=== PATIENT | female | born 1960 | race Caucasian/White ===

== ENCOUNTER → 2017-05-16 14:05 | Outpatient (CLI) | payer BC, SELFPAY ==
--- NOTE | 2017-05-16 | CT_ITS ---
EXAM: CT LUNG LOW DOSE WO CONTRAST COMPARISON: None HISTORY: 57-year-old male asymptomatic with greater than 30 pack-year smoking history ORDERING PHYSICIAN: Alexander Clay PATIENT AGE: 57 years TECHNIQUE: The exam was performed on a GE Light Speed [address] scanner using 2.96 mGy CTDI. A low dose helical CT CHEST was performed on a multi-detector scanner The LDCT was performed in a facility that meets the criteria for the screening program. Data regarding this exam was submitted to ACR which is an approved registry. The order for this exam indicates that it came as a result of a lung cancer screening counseling shard decision-making visit that included all the elements required of such a visit including smoking cessation. The radiologist interpreting this exam meets the [facility] criteria for the LDCT lung cancer screening program. The exam is reported using the Lung-RADS classification scale and reported to the ACR registry. NOTE: This study was performed for the specific purposes of lung cancer screening and is not an alternative to diagnostic chest CT. RADIATION DOSE: CTDI vol(CT dose Index-volume) = 2.96mG DLP (Dose Length Product) = 119.69 mGcm FINDINGS: Indeterminate or Suspicious Lung Nodules(Category3-4B): None Indeterminate/Non-actionable Nodules(Category2): None Benign nodules(Category1)small calcified granuloma left lower lobe LUNG PARENCHYMA Mild obstructive chronic bronchitis OTHER ANATOMIC REGIONS Lymph Nodes: No enlarged lymph nodes evident. Scattered small nodes are present in the mediastinum and daphne Pleura: Unremarkable Cardiac: Unremarkable OTHER FINDINGS: No other pertinent findings evident IMPRESSION: 1. Lung RADS Category: 2, benign 2. Other findings: No other pertinent findings evident RECOMMENDATIONS: 12 month LDCT screening exam
== END ==
PROVIDERS: PCP Physician Assistant; Visit Provider Internal Medicine
DX: Z87.891 Personal history of nicotine dependence (principal); Z12.2 Encounter for screening for malignant neoplasm of respiratory organs

== ENCOUNTER → 2017-06-14 16:59 | Outpatient (CLI) | payer BC, SELFPAY ==
[2017-06-14 17:28] LABS: Basophils # 0.1 K/mm3 (0-0.2); Basophils % 0.8 % (0.1-2.0); Eosinophils # 0.3 K/mm3 (0.0-0.4); Eosinophils % 3.1 % (0.1-12.0); Hematocrit 38.9 % (37.0-47.0); Hemoglobin 12.3 g/dL (12.2-16.2); Lymphocytes # 2.8 K/mm3 (0.7-4.5); Mean Corpuscular HGB Conc 31.6 g/dL (31.8-35.4); Mean Corpuscular Volume 91.9 fl (81-99); Mean Platelet Volume 8.6 fl (7.4-10.4); Monocytes # 0.6 K/mm3 (0.1-1.0); Monocytes % 7.4 % (1.7-9.3); Neutrophils # 4.3 K/mm3 (1.8-7.8); Neutrophils % 53.7 % (37.0-80.0); Platelet Count 279 K/mm3 (142-424); Red Blood Count 4.23 M/mm3 (4.20-5.40); Red Cell Distribution Width 12.4 % (11.5-17.5)
[2017-06-14 17:35] LABS: Anion Gap 10.1 mEq/L (5-15); Blood Urea Nitrogen 13 mg/dL (7-18); Carbon Dioxide 32 mmol/L (21.0-32.0); Chloride 103 mmol/L (98-107); Creatinine,Serum 0.84 mg/dL (0.55-1.02); Estimated Glomerular Filt Rate 70 ml/min (>60); GFR (African American) 85 ML/MIN (>60); Glucose 100 mg/dL (74-106); Potassium 4.1 mmoL/L (3.5-5.1); Sodium 141 mmol/L (136-145)
== END ==
PROVIDERS: PCP Internal Medicine; Visit Provider Otolaryngology
DX: H66.91 Otitis media, unspecified, right ear (principal); Z01.818 Encounter for other preprocedural examination
CPT/HCPCS: 36415; 80048; 85025

== ENCOUNTER → 2017-06-19 09:46 | Outpatient (CLI) | payer BC, SELFPAY ==
--- NOTE | 2017-06-19 09:48 | CA_ITS ---
PROCEDURE: 2-D M-mode and color Doppler study INDICATIONS FOR THE TEST: Chest pain COPD Heart Murmur Tobacco SmokingEX Palpitations Fatigue Syncope Edema HypertensionXDiabetes Mellitus Rheumatic Fever SOB LYONS Obesity HyperlipidemiaX Family History HD Additional History BRADYCARDIA/ABN EKG PATIENT INFORMATION HEIGHT: 67 WEIGHT:162 GENDER: Female B/P:134/80 2-D/M-MODE INTERPRETATION: 2-D MEASUREMENTS OBSERVED VALUES IN CMS Right Ventricular Dimension (RVDd) 2.5 Interventricular Septum (Thickness)(IVsd) .8 Left Ventricular Internal Dimensions(LVIDd) 4.8 Left Ventricular Posterior Wall (Thickness)(LVPWd) .8 Aortic Root 3.1 Aortic Cusp Separation 1.9 Left Atrial Dimensions (LAD) 2.9 2D 1. Left atrium is mildly enlarged, left ventricle is normal size, there is no concentric left ventricular hypertrophy, visually estimated ejection fraction 55% with no obvious regional wall motion abnormality. 2. The right atrium and right ventricle are normal size and contractility. 3. The aortic, mitral and tricuspid valve leaflets are minimally thickened. 4. The pulmonic valve is poorly visualized. 6. No significant pericardial effusion noted. DOPPLER INTERROGATION: Doppler interrogation of the aortic, mitral and tricuspid valvular presence of moderate mitral and mild tricuspid regurgitation, tricuspid regurgitant jet velocity insufficient for calculation of the right ventricular systolic pressure, diastolic parameters are inconclusive. CONCLUSION: 1. Mildly enlarged left atrium, normal left ventricular size, visually estimated ejection fraction 55% with no obvious regional wall motion abnormality, diastolic parameters are inconclusive. 2. Moderate mitral and mild tricuspid regurgitation 3. No significant pericardial effusion noted.
== END ==
PROVIDERS: PCP Internal Medicine; Visit Provider Physician Assistant
DX: R00.1 Bradycardia, unspecified (principal); Z01.818 Encounter for other preprocedural examination; R94.31 Abnormal electrocardiogram [ECG] [EKG]; E78.5 Hyperlipidemia, unspecified
CPT/HCPCS: 93306

== ENCOUNTER → 2017-06-26 06:51 | Outpatient (CLI) | payer BC, SELFPAY ==
--- NOTE | 2017-06-26 06:53 | NM_ITS ---
History and Indications: Hypertension, hyperlipidemia, shortness of breath, fatigue and abnormal EKG. Procedure: Patient exercised on Rodrigue protocol 7 minutes and 45 seconds, resting heart rate was 63 beats per resting blood pressure 153/84, with exercise maximum heart rate achieved was 173 bpm which is equal to 105% of the maximum predicted heart rate, and the blood pressure was 205/90. Test was started due to shortness of breath and fatigue patient denied any complained of chest pain. Patient has adequate exercise capacity achieved 9 metastases of workload on treadmill, the blood pressure response to exercise was adequate. Electrocardiogram: Resting electrocardiogram showed sinus rhythm, with exercise there is less than 1.[address] segment depression noted from the baseline EKG. The EKG portion of the exercise Myoview is negative for ischemia. Cardiac stress and resting SPECT images: Cardiac stress and rest SPECT images were obtained using technetium 99 Myoview 10.6 mCi at rest and 30.8 mCi at stress, gated SPECT further analysis of segmental wall motion and calculation of the ejection fraction also done. Cardiac stress and rest SPECT images show uniform myocardial activity without any segmental perfusion abnormality, computer derived ejection fraction is over 65% with no obvious regional wall motion abnormality, right ventricle is normal size and contractility. Conclusion: 1. The EKG portion of the exercise Myoview is negative for ischemia. Patient has adequate exercise capacity achieved 9 mets of workload on treadmill, the blood pressure response to exercise was adequate, there was no exercise-induced chest discomfort. 2. No obvious scintigraphic evidence of reversible ischemia seen, computer derived ejection fraction is over 65% with no obvious regional wall motion abnormality, right ventricle is normal size and contractility. 3. Normal exercise myocardial perfusion imaging
--- NOTE | 2017-06-26 07:43 | HMH.ITSHM ---
HYDROCHLOROT ATORVASTATIN
== END ==
PROVIDERS: PCP Internal Medicine; Visit Provider Internal Medicine
DX: R00.1 Bradycardia, unspecified (principal); Z01.818 Encounter for other preprocedural examination; E78.5 Hyperlipidemia, unspecified; R94.31 Abnormal electrocardiogram [ECG] [EKG]
CPT/HCPCS: 78452; 93017; A9502

== ENCOUNTER → 2017-09-19 09:51 | Outpatient (REF) | payer BC, SELFPAY ==
[2017-09-19 13:37] LABS: Basophils # 0.1 K/mm3 (0-0.2); Basophils % 0.8 % (0.1-2.0); Eosinophils # 0.2 K/mm3 (0.0-0.4); Hematocrit 39.3 % (37.0-47.0); Hemoglobin 12.2 g/dL (12.2-16.2); Lymphocytes # 1.9 K/mm3 (0.7-4.5); Lymphocytes % 26.8 K/mm3 (10-50); Mean Corpuscular HGB Conc 31.1 g/dL (31.8-35.4); Mean Corpuscular Hemoglobin 29.1 pg (27.0-31.2); Mean Corpuscular Volume 93.6 fl (81-99); Mean Platelet Volume 8.6 fl (7.4-10.4); Monocytes # 0.5 K/mm3 (0.1-1.0); Monocytes % 7.2 % (1.7-9.3); Neutrophils # 4.5 K/mm3 (1.8-7.8); Neutrophils % 62.1 % (37.0-80.0); Platelet Count 279 K/mm3 (142-424); Red Cell Distribution Width 12.7 % (11.5-17.5); White Blood Count 7.2 K/mm3 (4.8-10.8)
[2017-09-19 14:14] LABS: Alanine Aminotransferase 25 U/L (12-78); Albumin/Globulin Ratio 1.3 (1.1-1.8); Alkaline Phosphatase 66 U/L (46-116); Aspartate Amino Transferase 17 U/L (15-37); Bilirubin,Total 0.8 mg/dL (0.2-1.0); Blood Urea Nitrogen 13 mg/dL (7-18); Calcium 8.8 mg/dL (8.5-10.1); Carbon Dioxide 30 mmol/L (21.0-32.0); Chloride 105 mmol/L (98-107); Chol/HDL Ratio 1.9 (1-3.5); Cholesterol 176 mg/dL (140-200); Creatinine,Serum 0.74 mg/dL (0.55-1.02); Estimated Glomerular Filt Rate 81 ml/min (>60); Free T4 (Free Thyroxine) 0.98 ng/dl (0.76-1.46); GFR (African American) 99 ML/MIN (>60); Globulin 3.2 gm/dl (1.3-3.2); Glucose 96 mg/dL (74-106); HDL Cholesterol 94 mg/dL (29-89); LDL Cholesterol 75 mg/dL (0-130); Sodium 142 mmol/L (136-145); Thyroid Stimulating Hormone 1.83 uIU/ml (0.358-3.740); Total Protein,Serum 7.2 gm/dL (6.4-8.2); Triglycerides 33 mg/dL (30-200); VLDL Cholesterol 7 mg/dL (0-40)
[2017-09-20 13:59] LABS: Vitamin D 25 Hydroxy 48.6 ng/mL (30.0-100.0)
== END ==
LOC: LAB 09:51
PROVIDERS: Visit Provider Emergency Medicine
DX: R06.00 Dyspnea, unspecified (principal); E78.00 Pure hypercholesterolemia, unspecified; Z79.899 Other long term (current) drug therapy
CPT/HCPCS: 80053; 80061; 82652; 84439; 84443; 85025

== ENCOUNTER → 2017-11-13 13:22 | Outpatient (REF) | payer BC, SELFPAY | LOC: LAB 13:22 | PROVIDERS: Visit Provider Emergency Medicine | DX: R35.0 Frequency of micturition (principal) | CPT/HCPCS: 87086; 87088; 87186 ==

== ENCOUNTER → 2018-01-22 14:12 | Outpatient (CLI) | payer BC, SELFPAY ==
--- NOTE | 2018-01-22 14:14 | MM_ITS ---
MM Dig screening mamm BI w/CAD CAD Screening COMPARISON: Digital mammograms with CAD 08/16/2016 and 08/10/2015 INDICATION: There is no personal or family history of breast cancer TECHNIQUE: Standard CC and MLO images were obtained. R2 CAD reviewed. FINDINGS: Diffuse heterogenic fibroglandular densities are seen throughout both breasts. There are few benign-appearing calcination is left breast. There is no suspicious lesion and no suspicious microcalcifications. IMPRESSION: Moderate breast density with no suspicious lesion seen BI-RADS Category: 2 Benign Finding(s) RECOMMENDED FOLLOW-UP: 1YR - 1 YEAR FOLLOW-UP (A letter has been sent to the patient regarding results of the study.)
== END ==
PROVIDERS: PCP Emergency Medicine; Visit Provider Nurse Practitioner Obstetrics & Gynecology
DX: Z12.31 Encounter for screening mammogram for malignant neoplasm of breast (principal)
CPT/HCPCS: 77067

== ENCOUNTER → 2018-07-23 18:03 | Outpatient (CLI) | payer BC, SELFPAY ==
--- NOTE | 2018-07-23 18:13 | XR_ITS ---
XR knee LT 2V HISTORY: Pain ITS.REASON: left knee ORDERING PHYSICIAN: Gregorio Reddy MD PATIENT AGE: 58 years COMPARISON: None FINDINGS: No fracture or dislocation. No lytic or blastic change. Normal mineralization. No significant arthritic changes evident. No other significant findings IMPRESSION: Negative Knee
== END ==
PROVIDERS: PCP Emergency Medicine; Visit Provider Emergency Medicine
DX: M25.562 Pain in left knee (principal)
CPT/HCPCS: 73560

== ENCOUNTER → 2018-10-07 08:00 | Outpatient (CLI) | payer BC, SELFPAY ==
--- NOTE | 2018-10-07 08:03 | CA_ITS ---
PROCEDURE: 2-D M-mode and color Doppler study INDICATIONS FOR THE TEST: Chest pain COPD Heart Murmur Tobacco Smoking Palpitations Fatigue Syncope Edema HypertensionXDiabetes Mellitus Rheumatic Fever SOB LYONS Obesity HyperlipidemiaX Family History HDX Additional History MR PATIENT INFORMATION HEIGHT: 67 WEIGHT:162 GENDER: Female B/P:119/75 2-D/M-MODE INTERPRETATION: 2-D MEASUREMENTS OBSERVED VALUES IN CMS Right Ventricular Dimension (RVDd) 2.5 Interventricular Septum (Thickness)(IVsd) .7 Left Ventricular Internal Dimensions(LVIDd) 4.9 Left Ventricular Posterior Wall (Thickness)(LVPWd) .8 Aortic Root 2.7 Aortic Cusp Separation 1.8 Left Atrial Dimensions (LAD) 2.5 2D 1. Left atrium is qualitatively mildly enlarged, left ventricle is normal size, mild concentric left ventricular hypertrophy, visually estimated ejection fraction 55% with no regional wall motion abnormality. 2. The right atrium and right ventricle are normal size and contractility. 3. The aortic valve is minimally thickened and fibrosed. 4. The mitral and tricuspid valve leaflets are minimally thickened. 5. The pulmonic valve is poorly visualized. 6. No significant pericardial effusion noted. DOPPLER INTERROGATION: Doppler interrogation of the aortic, mitral and tricuspid valvular presence of moderate mitral and mild tricuspid regurgitation, calculated right ventricular systolic pressure is 35 mmHg, diastolic parameters are inconclusive. Inferior vena cava is mildly dilated without significant respiratory collapse. CONCLUSION: 1. Mildly enlarged left atrium, left ventricle size, mild concentric left ventricular hypertrophy, visually estimated ejection fraction 55% with no regional wall motion abnormality, diastolic parameters are inconclusive. 2. Moderate mitral and mild tricuspid regurgitation, calculated right ventricular systolic pressure 35 mmHg. Inferior vena cava is not well visualized. 3. No significant pericardial effusion noted.
== END ==
PROVIDERS: PCP Emergency Medicine; Visit Provider Physician Assistant
DX: I34.0 Nonrheumatic mitral (valve) insufficiency (principal); I07.1 Rheumatic tricuspid insufficiency
CPT/HCPCS: 93306

== ENCOUNTER → 2018-11-22 17:38 | Outpatient (CLI) | payer BC, SELFPAY | PROVIDERS: Visit Provider Emergency Medicine | DX: N39.0 Urinary tract infection, site not specified (principal) | CPT/HCPCS: 87086; 87088; 87186 ==

== ENCOUNTER → 2019-01-28 15:13 | Outpatient (CLI) | payer BC, SELFPAY ==
--- NOTE | 2019-01-28 15:21 | MM_ITS ---
PROCEDURE: MM DIG SCREENING MAMM BI W/CAD CLINICAL INDICATION: routine screening mammogram There is no personal or family history of breast cancer. There has been cyst aspiration left breast for benign disease. COMPARISON: [facility] DIG MAMM-SCREEN DOUG from 08/10/2015 [facility] DIG MAMM-SCREEN DOUG W/CAD from 08/16/2016 [facility] MM Dig screening mamm BI w/CAD from 01/22/2018 TECHNIQUE: Standard CC and MLO images were obtained. R2 CAD reviewed. FINDINGS: Moderate diffuse fibroglandular densities are seen in the central portions of both breasts. There are stable benign-appearing calcifications deep to the nipple of the left breast. There is no new or suspicious lesion and no suspicious microcalcifications. IMPRESSION: Moderate breast density with no suspicious lesions seen BI-RAD Category: 2 Benign Finding(s) FOLLOW-UP: 1YR 1 Year Follow-up (A letter has been sent to the patient regarding results of the study.) Dictated by: Dr. Chandu Chávez MD 01/30/2019 11:[address] Chandu Chávez MD in [place] 01/30/2019 11:21
== END ==
PROVIDERS: PCP Emergency Medicine; Visit Provider Nurse Practitioner Obstetrics & Gynecology
DX: Z12.31 Encounter for screening mammogram for malignant neoplasm of breast (principal)
CPT/HCPCS: 77067

== ENCOUNTER → 2019-03-11 07:34 | Outpatient (CLI) | payer BC, SELFPAY ==
--- NOTE | 2019-03-11 07:35 | MR_ITS ---
PROCEDURE: MR CERVICAL SPINE WO CON CLINICAL INDICATION: left arm numbness and pain, shoulder pain Left arm numbness and pain with pressure on left-sided chest, numbness down left with burning sensation and tingling COMPARISON: [facility] CERVICAL SPINE 4 OR 5 VIEWS from 01/15/2013 TECHNIQUE: Standard multiplanar multiecho sequences are performed without contrast. 3-D MIP and myelographic images are also rendered and reviewed FINDINGS: There is reversal of the cervical lordosis. This may be due to patient positioning or muscle spasm. Cranial cervical junction has an unremarkable appearance. C2-C3: Unremarkable. C3-C4: Unremarkable. C4-C5: Mild anterolisthesis of C4 over of 4 mm. C5-C6: Mild anterolisthesis for of C5 of approximately 4 mm. C6-C7: Degenerate disc disease with minimal bulging disc. There is facet and uncovertebral hypertrophy with right uncovertebral disc osteophyte complex causing moderate to severe narrowing of the right neural foramen and mild left foraminal narrowing. There narrowing of the canal at C6-C7 at 10 mm but no cord impingement. C7-T1: Unremarkable. There is a small right paracentral disc protrusion suspected at T2-T3 only imaged in the sagittal plane. No fracture or dislocation. IMPRESSION: 1. Reversal of lordosis which may be due to patient positioning or muscle spasm. 2. Anterolisthesis of C4 on C5 and C5 on C6 of 4 mm at each level. 3. Degenerative disc disease C6-C7 with minimal bulging disc. There is facet and uncovertebral hypertrophy with right uncovertebral disc osteophyte complex causing moderate to severe narrowing of the right neural foramen and mild left foraminal narrowing. There narrowing of the canal at C6-C7 at 10 mm but no cord impingement 4. Small right paracentral disc protrusion suspected at T2-T3 Dictated by: Issac Thomas MD 03/12/2019 12:39 Electronically signed by Issac Thomas MD in [place] 03/12/2019 12:39
== END ==
PROVIDERS: PCP Emergency Medicine; Visit Provider Emergency Medicine
DX: M54.12 Radiculopathy, cervical region (principal); M25.512 Pain in left shoulder; M79.602 Pain in left arm; R20.0 Anesthesia of skin
CPT/HCPCS: 72141; 76376

== ENCOUNTER → 2019-03-24 13:19 | Outpatient (POV) | payer BC, SELFPAY | PROVIDERS: Visit Provider Specialist | DX: M79.602 Pain in left arm (principal); R20.0 Anesthesia of skin; R20.2 Paresthesia of skin | CPT/HCPCS: 95886; 95909 ==

== ENCOUNTER → 2019-04-04 06:42 | Outpatient (CLI) | payer BC, SELFPAY ==
--- NOTE | 2019-04-04 | CA_ITS ---
APPROVED REPORT Exam: Exercise Treadmill Technologist: Bernarda Grimaldo Ht: 5 ft 7 in Wt: 170 lbs BSA: 1.89 m2 HR: 91 bpm BP: 155/96 mmHg Rhythm: NSR Medical History Medical History: HTN, Hyperlipidemia Medications: Gabapentin,,,,, Losartan,,,,, HCTZ,,,,, SyMBICORT,,,,, AtorvaASTATIN,,,,, CyclobenAPRINE,,,,, Omepazole,,,,, Cardiac Risk Factors: HTN, Hyperlipidemia, FHX of CAD Stress Test Details Test: Adam HR Resting HR: 99 bpm Max Heart Rate (APMHR): 163 bpm Max HR Achieved: 168 bpm Target HR (85% APMHR): 138 bpm % of APMHR: 103 Recovery HR: 129 bpm BP Resting BP: 147/88 mmHg Max BP: 216/117 mmHg BP response to stress: Normal blood pressure response to stress. ECG Resting ECG: NORMAL SINUS RHYTHM Clinical Reason for Termination: Dyspnea Exercise duration: 06:00 min Highest Stage Achieved: Exercise capacity: 7.0 METs Stress ECG Conclusion PATIENT WALKED 6 MINUTES ON ADAM PROTOCOL WITH MAX HEART RATE 168 BPM WHICH IS 120% OF PM FOR AGE. METS = 7.0. TEST STOPPED DUE TO SOA. OCCASIONAL PVC'S. ONE TRIPLET IN STRESS,ANOTHER IN REST. <1.[address] SEGMENT CHANGES. ABNORMAL STRESS(SOA,ARRHYTHMIAS) Test Summary RECOVERY 05:30 0.0 0.0 108 . 190/ 88 . . REST . . . . . . . Sitting REST . . . . . . . Sitting REST 13:29 0.0 1.2 99 . 147/ 88 . . Stage 1 01:00 10.0 1.7 111 . . . . Stage 1 02:00 10.0 1.7 126 . . . . Stage 1 03:00 10.0 1.7 137 . . . . Stage 2 01:00 12.0 2.5 146 . 146/ 84 . . Stage 2 02:00 12.0 2.5 159 . 146/ 84 . . Stage 2 . . . . . . . Cardiolite injected Stage 2 . . . . . . . Stage held Stage 2 . . . . . . . Stage resumed Stage 2 03:00 12.0 2.5 163 . 156/ 92 . Stop exercise at 06:00 RECOVERY 01:00 0.0 0.0 158 . . . . RECOVERY 02:00 0.0 0.0 140 . 216/117 . . RECOVERY 03:00 0.0 0.0 130 . 216/117 . . RECOVERY 04:00 0.0 0.0 117 . 216/117 . . RECOVERY 05:00 0.0 0.0 108 . 216/117 . . RECOVERY 05:30 0.0 0.0 108 . 190/ 88 . . Electronically signed by : Reza Vasquez, 04/04/2019 14:54:49
--- NOTE | 2019-04-04 06:49 | NM_ITS ---
APPROVED REPORT Exam: Nuclear Stress Test Indication: LT ARM PAIN, HTN, HYPERLIPIDEMIA, FM.HX., C.P., MELISSA MAYO Patient Location: Outpatient Stress Tech: Bernarda Cazaresnkson [place] Tech:Gabrielle Encarnacion, ARRT RT(R)(N) Ht: 5 ft 7 in Wt: 170 lbs Bra Size: 38D HR: 91 bpm BP: 155/96 mmHg BSA: 1.89 m2 BMI: 26.6 History: LT ARM PAIN, HTN, HYPERLIPIDEMIA, FM.HX., C.P., SOB, MELISSA Procedure: Patient exercised on Rodrigue protocol 6:00 minutes and sec, resting heart rate 91 bpm, resting blood pressure 155/96 mmHg, with exercise maximum heart rate achived was 164 bpm which is Greater than 85 % of the maximum predicted heart rate and blood pressure was 217/92 mmHg. Test was stopped due to Shortness of breath. Patient has Adequate exercise capacity, achieved 7 METs of workload on treadmill, the blood pressure response to exercise was Hypertensive. SOB Electrocardiogram Resting electrocardiogram showed sinus rhythm, with exercise there is less than 1.[address] segment depression noted from the baseline EKG. The EKG portion of the exercise Myoview is negative for ischemia. Cardiac Stress and Resting SPECT Images: Cardiac Stress and Resting SPECT images were obtained using technetium 99m Myoview 30.4 mCi stress and 10.80 mCi at rest. Gated SPECT with analysis of segmental wall motion and calculation of the ejection fraction also done. Cardiac stress and resting SPECT images show uniform myocardial activity without segmental perfusion abnormality, computer derived ejection fraction is over 65% with no regional wall motion abnormality, right ventricle is normal size and contractility. Conclusion: 1. The EKG portion of the exercise Myoview is negative for ischemia, patient has adequate exercise capacity achieved 7 mets of workload on treadmill, the blood pressure response to exercise was hypertensive, test was stopped due to shortness of breath. 2. No scintigraphic evidence of reversible ischemia seen at this level of exercise, computer derived ejection fraction is over 65% with no regional wall motion abnormality, right ventricle is normal size and contractility. 3. Normal exercise Myoview study except for hypertensive blood pressure response. Electronically signed by : Reza Vasquez, 04/04/2019 14:58:09
--- NOTE | 2019-04-04 09:41 | HMH.ITSHM ---
Current Home Medications as stated by this patient Melinda Anne or quality control representative. [] losartan atorvastain omeprazole cyclobenzaprine gabapentin symbicort
== END ==
PROVIDERS: PCP Emergency Medicine; Visit Provider Urology
DX: I34.0 Nonrheumatic mitral (valve) insufficiency (principal); R07.9 Chest pain, unspecified; E78.5 Hyperlipidemia, unspecified; I10 Essential (primary) hypertension
CPT/HCPCS: 78452; 93017; A9502

== ENCOUNTER → 2019-04-08 07:45 | Outpatient (CLI) | payer BC, SELFPAY ==
--- NOTE | 2019-04-08 07:45 | MR_ITS ---
PROCEDURE: MR BRACHIAL PLEXUS LT WO CON CLINICAL INDICATION: abn emg/ncv Left-sided shoulder blade pain, left shoulder and arm pain numbness and tingling, left-sided upper chest pain/strain COMPARISON: No exams were available for comparison TECHNIQUE: Routine multiplanar multi echo sequences are performed without gadolinium enhancement. FINDINGS: Spondylitic changes are present in the cervical spine and were described recently and a cervical spine MRI of 03/11/2019. Please see that report for the cervical spine findings. No abnormal signal intensity in the region of the brachial plexus on either side. No obvious mass or fluid collection. There is some prominence of the vascularity in the upper chest wall anteriorly. This is of questionable clinical significance and may only be due to anatomic variation. Enhanced CT of the chest to include the lower neck may confirm this finding to exclude the possibility of an AVM. No other significant anomalies are evident. IMPRESSION: Prominent vascularity in the upper chest/lower neck anteriorly on the left. This may only be due to variation of normal however, with the patient's symptoms would suggest confirmation with CT angiogram of the lower neck and upper chest with delayed imaging to exclude the possibility of an arteriovenous malformation aneurysm or varix. Cervical spondylosis. Please see cervical spine MRI for those findings. Dictated by: Issac Thomas MD 04/11/2019 06:17 Electronically signed by Issac Thomas MD in [place] 04/11/2019 06:17
== END ==
PROVIDERS: PCP Emergency Medicine; Visit Provider Emergency Medicine
DX: G54.0 Brachial plexus disorders (principal)
CPT/HCPCS: 73218

== ENCOUNTER → 2019-04-24 14:00 | Outpatient (CLI) | payer BC, SELFPAY ==
[2019-04-24 15:45] LABS: Anion Gap 9.9 mEq/L (5-15); Blood Urea Nitrogen 15 mg/dL (7-18); Calcium 8.8 mg/dL (8.5-10.1); Carbon Dioxide 33 mmol/L (21.0-32.0); Chloride 103 mmol/L (98-107); Creatinine,Serum 0.78 mg/dL (0.55-1.02); Estimated Glomerular Filt Rate 76 ml/min (>60); GFR (African American) 92 ML/MIN (>60); Glucose 93 mg/dL (74-106); Potassium 3.9 mmoL/L (3.5-5.1); Sodium 142 mmol/L (136-145)
== END ==
PROVIDERS: Visit Provider Emergency Medicine
DX: Z01.818 Encounter for other preprocedural examination (principal)
CPT/HCPCS: 36415; 80048

== ENCOUNTER → 2019-04-28 12:35 | Outpatient (CLI) | payer BC, SELFPAY ==
--- NOTE | 2019-04-28 12:35 | CT_ITS ---
Procedure: CT ANGIO NECK CLINICAL HISTORY: with delayed imaging; r/o AVM Left-sided scapular pain and numbness burning sensation. Left shoulder blade pain, left upper chest pain, abnormal MRI the brachial plexus with questionable arteriovenous malformation COMPARISON: MR BRACHIAL PLEXUS LT WO CON from 04/08/2019 TECHNIQUE: IV Contrast: 100ml Optiray 350 Axial images obtained with sagittal and coronal reformats. All CT scans at the facility use one or more dose reduction, viz: automated exposure control, ma/kV adjustment per patient size (including targeted exams where dose is matched to indication, i.e. head), or iterative reconstruction technique. FINDINGS: No evidence of aortic aneurysm. Contrast was injected into the antecubital vein in the left upper extremity which did cause prominence of the venous structures about the left shoulder girdle. This makes it difficult to exclude the possibility of early venous filling on the left which 1 would see with an AVM. The patient will be asked to come back and repeat the exam at no additional charge with injection into the right antecubital fossa and if negative would eliminate any concern for AVM on the left. No aneurysms are evident. No soft tissue mass or abnormal fluid collection. No acute bony anomalies. There is mild anterolisthesis of C4 on C5 of 4 mm and C5 on C6 of 3 mm with reversal of the cervical lordosis and degenerative disc disease at C6-C7. Facet and uncovertebral hypertrophy is present with left-sided foraminal narrowing at C3-C4 and C4-C5. The lung apices are clear. IMPRESSION: Prominent veins are present in the shoulder girdle on the left but may be related to the fact contrast was injected into the left antecubital vein. The patient will be asked to return at no additional charge with repeat imaging with contrast injected into the right antecubital vein. Cervical spondylosis Dictated by: Issac Thomas MD 04/30/2019 09:16 Electronically signed by Issac Thomas MD in [place] 04/30/2019 09:16
== END ==
PROVIDERS: PCP Emergency Medicine; Visit Provider Emergency Medicine
DX: Q27.30 Arteriovenous malformation, site unspecified (principal)
CPT/HCPCS: 70498; Q9967

== ENCOUNTER → 2019-04-28 13:45 | Outpatient (POV) | payer BC, SELFPAY ==
[2019-04-28 14:09] VITALS: BP 164/98; PULSE 96; RESP 18; O2SAT 99; BMI 26.6
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
== END ==
PROVIDERS: PCP Emergency Medicine; Visit Provider Clinical Nurse Specialist Family Health
DX: M47.22 Other spondylosis with radiculopathy, cervical region (principal); E11.9 Type 2 diabetes mellitus without complications; K21.9 Gastro-esophageal reflux disease without esophagitis; R01.1 Cardiac murmur, unspecified; E78.5 Hyperlipidemia, unspecified; I10 Essential (primary) hypertension; Z79.899 Other long term (current) drug therapy; Z88.0 Allergy status to penicillin
CPT/HCPCS: 99202

== ENCOUNTER → 2019-05-05 12:33 | Outpatient (CLI) | payer BC, SELFPAY ==
--- NOTE | 2019-05-05 12:36 | CT_ITS ---
PROCEDURE: REPEAT VIEW CT CLINICAL HISTORY: Left-sided scapular pain and numbness with burning sensation. Possible arteriovenous malformation. COMPARISON: CT ANGIO NECK from 04/28/2019 TECHNIQUE: Study is repeated with contrast injected into the right and a cubital vein in order to decrease the obvious venous filling on the left as that was the site questionable arteriovenous malformation Axial images obtained with sagittal and coronal reformats. All CT scans at the facility use one or more dose reduction, viz: automated exposure control, ma/kV adjustment per patient size (including targeted exams where dose is matched to indication, i.e. head), or iterative reconstruction technique. FINDINGS: The left neck and left axillary and scapular region have an unremarkable appearance. No evidence of arteriovenous malformation or aneurysm. The left lung apex is clear. There is mild anterolisthesis of C4 on C5 of 3 mm with mild degenerative disc disease of C4-C5-C5-C6 and moderate degenerative disc disease at C6-C7. There is moderate right-sided foraminal narrowing at C6-C7. IMPRESSION: 1. No evidence of left chest wall AVM. 2. Cervical spondylosis Dictated by: Issac Thomas MD 05/06/2019 08:23 Electronically signed by Issac Thomas MD in [facility] 05/06/2019 08:23
== END ==
PROVIDERS: PCP Emergency Medicine; Visit Provider Emergency Medicine
DX: Q27.30 Arteriovenous malformation, site unspecified (principal)

== ENCOUNTER → 2020-03-03 15:15 | Outpatient (CLI) | payer BC, SELFPAY ==
--- NOTE | 2020-03-03 15:15 | MM_ITS ---
PROCEDURE: MM DIG SCREENING MAMM BI W/CAD Digital Breast Tomosynthesis Included CLINICAL INDICATION: screening There is no personal or family history of breast cancer. There has been a previous cyst aspiration left breast with benign findings. COMPARISON: MG DMSB DIG MAMM-SCREEN DOUG W/CAD from 08/16/2016 MG [facility] MM Dig screening mamm BI w/CAD from 01/22/2018 MG MM DIG SCREENING MAMM BI W/CAD from 01/28/2019 TECHNIQUE: Standard CC and MLO images and 3D Tomosynthesis was obtained. R2 CAD reviewed. FINDINGS: Fibroglandular densities are seen throughout both breast and the findings are bilateral and symmetrical. There are a couple of benign-appearing calcifications in each breast. No new or suspicious lesion in either breast and no suspicious microcalcifications. IMPRESSION: Fibrofatty parenchyma with no suspicious lesions seen BI-RAD Category: 2 Benign Finding(s) FOLLOW-UP: 1YR 1 Year Follow-up (A letter has been sent to the patient regarding results of the study.) Dictated by: Dr. Chandu Chávez MD 03/05/2020 09:16 Dr. Chandu Chávez MD in [facility] 03/05/2020 09:16
== END ==
PROVIDERS: PCP Emergency Medicine; Visit Provider Emergency Medicine
DX: Z12.31 Encounter for screening mammogram for malignant neoplasm of breast (principal)
CPT/HCPCS: 77063; 77067

== ENCOUNTER → 2020-06-01 08:02 | Outpatient (POV) | payer BC, SELFPAY | PROVIDERS: Visit Provider Dermatology | DX: Z00.00 Encounter for general adult medical examination without abnormal findings (principal) ==

== ENCOUNTER → 2020-06-15 07:44 | Outpatient (CLI) | payer BC, SELFPAY ==
--- NOTE | 2020-06-15 07:51 | XR_ITS ---
PROCEDURE: XR FOOT WT BEARING RT 3V CLINICAL INDICATION: toe pain, redness COMPARISON: No exams were available for comparison FINDINGS: No fracture or dislocation. No lytic or blastic change. There is normal mineralization. The joint spaces are well-preserved. No significant degenerative/arthritic changes. No erosive changes evident. Other findings:Mild soft tissue swelling great toe IMPRESSION: Mild soft tissue swelling great toe otherwise negative Dictated by: Issac Thomas MD 06/15/2020 09:04 Issac Thomas MD in [facility] 06/15/2020 09:04
== END ==
PROVIDERS: PCP Emergency Medicine; Visit Provider Podiatrist
DX: M79.671 Pain in right foot (principal)
CPT/HCPCS: 73630; 87102; 87206; 87220

== ENCOUNTER → 2020-06-18 14:50 | Outpatient (CLI) | payer BC, SELFPAY ==
--- NOTE | 2020-06-18 15:13 | US_ITS ---
APPROVED REPORT Exam Type: Ankle to Brachial Index Stoner Hand: Sandy Patiño RT(R) Indications Rest Pain: Bilaterally Current Smoker Patient states Dr. Herndon had difficulty finding a right DP pulse. Risk Factors Hypertension Hyperlipidemia Pressures/Indices Right Indices Left Indices Brachial 133.00 mmHg Brachial 125.00 mmHg Low Thigh 126.00 mmHg 0.95 Low Thigh 135.00 mmHg 1.02 Calf 148.00 mmHg 1.11 Calf 131.00 mmHg 0.98 Ankle(PT) 161.00 mmHg 1.21 Ankle(PT) 170.00 mmHg 1.28 Ankle(DP) 146.00 mmHg 1.10 Ankle(DP) 151.00 mmHg 1.14 Digit 116.00 mmHg 0.87 Digit 109.00 mmHg 0.82 Findings RT ANA=1.2 LT ANA=1.28 RT TBI=0.87 LT TBI=0.82 Normal pulses Normal waveforms Conclusion RT ANA=1.2 LT ANA=1.28 RT TBI=0.87 LT TBI=0.82 Normal pulses Normal waveforms No evidence significant arterial disease throughout the right and left lower extremities as evidenced by normal resting PVR waveforms and normal resting indices. Electronically signed by : Issac Thomas MD 06/18/2020 16:17:26
== END ==
PROVIDERS: PCP Emergency Medicine; Visit Provider Podiatrist
DX: M79.605 Pain in left leg (principal); M79.604 Pain in right leg; R09.89 Other specified symptoms and signs involving the circulatory and respiratory systems
CPT/HCPCS: 93923

== ENCOUNTER → 2021-01-08 09:02 | Outpatient (CLI) | payer BC, SELFPAY ==
[2021-01-08 09:40] LABS: Basophils # 0.1 K/mm3 (0-0.2); Basophils % 0.7 % (0.1-2.0); Eosinophils # 0.2 K/mm3 (0.0-0.4); Eosinophils % 2.9 % (0.1-12.0); Hematocrit 37.9 % (37.0-47.0); Hemoglobin 12.5 g/dL (12.2-16.2); Lymphocytes % 30.7 % (10-50); Mean Corpuscular Hemoglobin 30.7 pg (27.0-31.2); Mean Platelet Volume 8.5 fl (7.4-10.4); Monocytes # 0.5 K/mm3 (0.1-1.0); Monocytes % 7.9 % (1.7-9.3); Neutrophils # 3.8 K/mm3 (1.8-7.8); Neutrophils % 57.7 % (37.0-80.0); Platelet Count 319 K/mm3 (142-424); Red Blood Count 4.07 M/mm3 (4.20-5.40); White Blood Count 6.6 K/mm3 (4.8-10.8)
[2021-01-08 10:08] LABS: Alanine Aminotransferase 14 U/L (12-78); Albumin Level 3.8 g/dl (3.5-5.0); Albumin/Globulin Ratio 1.3 (1.1-1.8); Alkaline Phosphatase 56 U/L (38-126); Anion Gap 7.5 mEq/L (5-15); Aspartate Amino Transferase 22 U/L (14-36); Bilirubin,Total 0.8 mg/dl (0.2-1.3); Blood Urea Nitrogen 11 mg/dl (7-17); Carbon Dioxide 30 mmol/L (22.0-30.0); Chloride 107 mmol/L (98-107); Chol/HDL Ratio 1.9 (1-3.5); Cholesterol 181 mg/dl (140-200); Estimated Glomerular Filt Rate 103 ml/min (>60); GFR (African American) 124 ML/MIN (>60); Globulin 2.9 g/dL (1.3-3.2); Glucose 96 mg/dl (74-100); HDL Cholesterol 94 mg/dl (40-60); Potassium 4.5 mmoL/L (3.5-5.1); Sodium 140 mmol/L (136-145); Total Protein,Serum 6.7 g/dl (6.3-8.2); Triglycerides 51 mg/dl (30-150); VLDL Cholesterol 10 mg/dL (0-40)
[2021-01-08 10:19] LABS: Direct LDL Cholesterol 76.09 mg/dL (100-129)
[2021-01-08 10:23] LABS: 25-OH Vitamin D, Total 45.1 ng/mL (30-100)
[2021-01-08 10:24] LABS: Free T4 (Free Thyroxine) 1.07 ng/dl (0.78-2.19)
[2021-01-08 10:41] LABS: Thyroid Stimulating Hormone 3.16 uIU/mL (0.465-4.68)
== END ==
PROVIDERS: Visit Provider Emergency Medicine
DX: E03.9 Hypothyroidism, unspecified (principal); R53.83 Other fatigue; K59.00 Constipation, unspecified
CPT/HCPCS: 80053; 80061; 82306; 84439; 84443; 85025

== ENCOUNTER → 2021-03-31 08:17 | Outpatient (CLI) | payer BC, SELFPAY ==
--- NOTE | 2021-03-31 08:17 | MM_ITS ---
PROCEDURE INFORMATION: Exam: MG Bilateral Screening 3D Mammography Exam date and time: 03/31/2021 8:17 AM Age: 61 years old Clinical indication: Encounter for screening mammogram for malignant neoplasm of breast TECHNIQUE: Imaging protocol: Bilateral screening tomosynthesis and 2D mammography including computer-aided detection (CAD) when performed. COMPARISON: 1. MG MM DIG SCREENING MAMM BI W/CAD 03/03/2020 3:33 PM 2. MG MM DIG SCREENING MAMM BI W/CAD 01/28/2019 3:38 PM FINDINGS: MAMMOGRAPHY: Breast composition: The breast tissue is heterogeneously dense, which may obscure small masses. Mass: None. Architectural distortion: None. Calcifications: No suspicious calcifications. Asymmetric density: None. Skin thickening: None. Axillary adenopathy: None. IMPRESSION: No mammographic evidence of malignancy. Annual screening is recommended unless otherwise clinically indicated. ASSESSMENT: BI-RADS Category 1: Negative
== END ==
PROVIDERS: PCP Emergency Medicine; Visit Provider Nurse Practitioner Obstetrics & Gynecology
DX: Z12.31 Encounter for screening mammogram for malignant neoplasm of breast (principal)
CPT/HCPCS: 77063; 77067

== ENCOUNTER → 2022-02-08 14:26 | Outpatient (CLI) | payer BC, SELFPAY ==
[2022-02-08 14:03] LABS: Influenza A, PCR Not Detected (NotDetected); Influenza B, PCR Not Detected (NotDetected)
[2022-02-08 21:31] LABS: Coronavirus 19, PCR Detected (NotDetected)
== END ==
PROVIDERS: PCP Emergency Medicine; Visit Provider Emergency Medicine
DX: U07.1 COVID-19 (principal); R09.89 Other specified symptoms and signs involving the circulatory and respiratory systems; R50.9 Fever, unspecified
CPT/HCPCS: C9803; U0003; U0005

== ENCOUNTER → 2022-04-08 08:11 | Outpatient (CLI) | payer BC, SELFPAY ==
[2022-04-08 08:46] LABS: Basophils # 0.2 K/mm3 (0-0.2); Eosinophils # 0.3 K/mm3 (0.0-0.4); Eosinophils % 3.8 % (0.1-12.0); Hematocrit 36.8 % (37.0-47.0); Hemoglobin 12.2 g/dL (12.2-16.2); Lymphocytes # 1.4 K/mm3 (0.7-4.5); Lymphocytes % 21.7 % (10-50); Mean Corpuscular HGB Conc 33.1 g/dL (31.8-35.4); Mean Corpuscular Hemoglobin 30.3 pg (27.0-31.2); Mean Corpuscular Volume 91.7 fl (81-99); Mean Platelet Volume 8.2 fl (7.4-10.4); Monocytes # 0.5 K/mm3 (0.1-1.0); Neutrophils # 4.1 K/mm3 (1.8-7.8); Neutrophils % 63.6 % (37.0-80.0); Platelet Count 339 K/mm3 (142-424); Red Blood Count 4.01 M/mm3 (4.20-5.40); Red Cell Distribution Width 13.2 % (11.5-17.5); White Blood Count 6.5 K/mm3 (4.8-10.8)
[2022-04-08 09:14] LABS: Alanine Aminotransferase 20 U/L (12-78); Albumin Level 4.1 g/dl (3.5-5.0); Albumin/Globulin Ratio 1.6 (1.1-1.8); Alkaline Phosphatase 56 U/L (38-126); Anion Gap 9.2 mEq/L (5-15); Aspartate Amino Transferase 26 U/L (14-36); Bilirubin,Total 0.8 mg/dl (0.2-1.3); Blood Urea Nitrogen 15 mg/dl (7-17); Calcium 8.6 mg/dl (8.4-10.2); Carbon Dioxide 30 mmol/L (22.0-30.0); Chloride 104 mmol/L (98-107); Cholesterol 176 mg/dl (140-200); Estimated Glomerular Filt Rate 73 ml/min (>60); GFR (African American) 89 ML/MIN (>60); Globulin 2.6 g/dL (1.3-3.2); Glucose 92 mg/dl (74-100); HDL Cholesterol 86 mg/dl (40-60); Potassium 4.2 mmoL/L (3.5-5.1); Sodium 139 mmol/L (136-145); Total Protein,Serum 6.7 g/dl (6.3-8.2); Triglycerides 44 mg/dl (30-150); VLDL Cholesterol 9 mg/dL (0-40)
[2022-04-08 09:33] LABS: 25-OH Vitamin D, Total 32.2 ng/mL (30-100); Free T4 (Free Thyroxine) 1.08 ng/dl (0.78-2.19)
[2022-04-08 09:42] LABS: Direct LDL Cholesterol 68.17 mg/dL (100-129)
[2022-04-08 09:48] LABS: Thyroid Stimulating Hormone 3.57 uIU/mL (0.465-4.68)
== END ==
PROVIDERS: PCP Emergency Medicine; Visit Provider Emergency Medicine
DX: R68.89 Other general symptoms and signs (principal); E55.9 Vitamin D deficiency, unspecified
CPT/HCPCS: 36415; 80053; 80061; 82306; 84439; 84443; 85025

== ENCOUNTER → 2022-04-18 13:10 | Outpatient (CLI) | payer BC, SELFPAY ==
--- NOTE | 2022-04-18 13:10 | MM_ITS ---
PROCEDURE INFORMATION: Exam: MG Bilateral Screening 3D Mammography Exam date and time: 04/18/2022 1:16 PM Age: 62 years old Clinical indication: Screening examination TECHNIQUE: Imaging protocol: Bilateral Screening tomosynthesis and 2D mammography including computer-aided detection (CAD) when performed. COMPARISON: 1. MG MM DIG SCREENING MAMM BI W/CAD 03/31/2021 8:22 AM 2. MG MM DIG SCREENING MAMM BI W/CAD 03/03/2020 3:33 PM FINDINGS: MAMMOGRAPHY: Breast composition: There are scattered areas of fibroglandular density. Mass: None. Architectural distortion: None. Calcifications: No suspicious calcifications. Asymmetric density: None. Skin thickening: None. Axillary adenopathy: None. IMPRESSION: No mammographic evidence of malignancy. Annual screening is recommended unless otherwise clinically indicated. ASSESSMENT: BI-RADS Category 1: Negative
== END ==
PROVIDERS: PCP Emergency Medicine; Visit Provider Nurse Practitioner Obstetrics & Gynecology
DX: Z12.31 Encounter for screening mammogram for malignant neoplasm of breast (principal)
CPT/HCPCS: 77063; 77067

== ENCOUNTER → 2022-05-29 14:01 | Outpatient (CLI) | payer BC, SELFPAY ==
--- NOTE | 2022-05-29 14:01 | CT_ITS ---
FINAL REPORT TECHNIQUE: Thin section axial CT images of the temporal bones were obtained. Coronal reformatted images were also obtained.This study was performed with techniques to keep radiation doses as low as reasonably achievable (ALARA). Individualized dose reduction techniques using automated exposure control or adjustment of mA and/or kV according to the patient''s size were employed. CLINICAL HISTORY: hole in eardrum, loss of hearing on right side FINDINGS: Right temporal bone: The internal auditory canal has an unremarkable appearance. The inner ear structures are unremarkable. The external auditory canal has an unremarkable appearance. There is thickening of the inferior aspect of the right tympanic membrane with retraction medially. The ossicles are intact. The mastoid air cells and mastoid antrum have an unremarkable appearance. No bony mass is identified. Left temporal bone:The internal auditory canal has an unremarkable appearance. The inner ear structures are unremarkable. The external auditory canal has an unremarkable appearance. No abnormality is identified of the middle ear cavity. The ossicles are intact. The mastoid air cells and mastoid antrum have an unremarkable appearance. No bony mass is identified. IMPRESSION: Thickening of the inferior aspect of the right tympanic membrane with medial retraction which is likely inflammatory. Unremarkable left temporal bone. Authenticated and [facility]
== END ==
LOC: RAD 14:01
PROVIDERS: PCP Emergency Medicine; Visit Provider Otolaryngology
DX: H72.91 Unspecified perforation of tympanic membrane, right ear (principal)
CPT/HCPCS: 70480

== ENCOUNTER → 2022-06-28 07:54 | Outpatient (POV) | payer BC, SELFPAY | PROVIDERS: Visit Provider Specialist/Technologist | DX: Z00.00 Encounter for general adult medical examination without abnormal findings (principal) ==

== ENCOUNTER → 2022-07-14 08:08 | Outpatient (CLI) | payer BC, SELFPAY ==
--- NOTE | 2022-07-14 08:17 | ECG_ITS ---
APPROVED REPORT Exam: Resting ECG HR:65 bpm ECG Measurements Heart Rate 65 AXES NV 152 P 48 QRSd 93 QRS 82 QT 395 T 76 QTc 406 Conclusion SINUS RHYTHM WITH SINUS ARRHYTHMIA NORMAL ECG UNCONFIRMED REPORT Electronically signed by : Hua Montgomery MD 07/14/2022 14:19:23
[2022-07-14 08:49] LABS: Basophils # 0.1 K/mm3 (0-0.2); Basophils % 0.7 % (0.1-2.0); Eosinophils # 0.2 K/mm3 (0.0-0.4); Eosinophils % 3.2 % (0.1-12.0); Hematocrit 37.8 % (37.0-47.0); Hemoglobin 12.4 g/dL (12.2-16.2); Lymphocytes # 1.8 K/mm3 (0.7-4.5); Lymphocytes % 27.8 % (10-50); Mean Corpuscular HGB Conc 32.7 g/dL (31.8-35.4); Mean Corpuscular Hemoglobin 29.7 pg (27.0-31.2); Mean Corpuscular Volume 90.8 fl (81-99); Mean Platelet Volume 8.1 fl (7.4-10.4); Monocytes # 0.6 K/mm3 (0.1-1.0); Monocytes % 9.2 % (1.7-9.3); Neutrophils # 3.9 K/mm3 (1.8-7.8); Platelet Count 297 K/mm3 (142-424); Red Blood Count 4.17 M/mm3 (4.20-5.40); Red Cell Distribution Width 12.5 % (11.5-17.5); White Blood Count 6.7 K/mm3 (4.8-10.8)
[2022-07-14 09:15] LABS: Alanine Aminotransferase 18 U/L (12-78); Albumin/Globulin Ratio 1.5 (1.1-1.8); Alkaline Phosphatase 63 U/L (38-126); Anion Gap 8.1 mEq/L (5-15); Aspartate Amino Transferase 24 U/L (14-36); Blood Urea Nitrogen 19 mg/dl (7-17); Calcium 8.7 mg/dl (8.4-10.2); Carbon Dioxide 33 mmol/L (22.0-30.0); Chloride 102 mmol/L (98-107); Estimated Glomerular Filt Rate 73 ml/min (>60); GFR (African American) 89 ML/MIN (>60); Globulin 2.6 g/dL (1.3-3.2); Glucose 93 mg/dl (74-100); Potassium 5.1 mmoL/L (3.5-5.1); Sodium 138 mmol/L (136-145); Total Protein,Serum 6.6 g/dl (6.3-8.2)
== END ==
LOC: LAB 08:09
PROVIDERS: PCP Emergency Medicine; Visit Provider Otolaryngology
DX: Z01.818 Encounter for other preprocedural examination (principal)
CPT/HCPCS: 36415; 80053; 85025; 93005

== ENCOUNTER → 2022-08-18 15:17 | Outpatient (CLI) | payer BC, SELFPAY | PROVIDERS: PCP Emergency Medicine; Visit Provider Emergency Medicine | DX: N39.0 Urinary tract infection, site not specified (principal) | CPT/HCPCS: 87086 ==

== ENCOUNTER → 2022-09-05 11:44 | Outpatient (POV) | payer BC, SELFPAY | PROVIDERS: Visit Provider Dermatology | DX: Z00.00 Encounter for general adult medical examination without abnormal findings (principal) ==

== ENCOUNTER → 2022-09-11 14:15 | Outpatient (CLI) | payer BC, SELFPAY | PROVIDERS: PCP Emergency Medicine; Visit Provider Emergency Medicine | DX: N39.0 Urinary tract infection, site not specified (principal); R82.90 Unspecified abnormal findings in urine | CPT/HCPCS: 87086 ==

== ENCOUNTER → 2022-10-31 08:58 | Outpatient (POV) | payer BC, SELFPAY | PROVIDERS: Visit Provider Dermatology | DX: Z00.00 Encounter for general adult medical examination without abnormal findings (principal) ==

== ENCOUNTER → 2022-11-08 15:19 | Outpatient (POV) | payer BC, SELFPAY | PROVIDERS: Visit Provider Specialist/Technologist | DX: Z00.00 Encounter for general adult medical examination without abnormal findings (principal) ==

== ENCOUNTER 2023-04-24 14:14 | Outpatient (CLI) | payer OTHER, SELFPAY ==
--- NOTE | 2023-04-24 14:14 | MM_ITS ---
PROCEDURE INFORMATION: Exam: MG Bilateral Screening 3D Mammography Exam date and time: 04/24/2023 2:07 PM Age: 63 years old Clinical indication: Screening. No family history of breast cancer. TECHNIQUE: Imaging protocol: Bilateral Screening tomosynthesis and 2D mammography including computer-aided detection (CAD) when performed. COMPARISON: 1. MG MM DIG SCREENING MAMM BI W/CAD 04/18/2022 1:16 PM 2. MG MM DIG SCREENING MAMM BI W/CAD 03/31/2021 8:22 AM 3. MG MM DIG SCREENING MAMM BI W/CAD 03/03/2020 3:33 PM 4. MG MM DIG SCREENING MAMM BI W/CAD 01/28/2019 3:38 PM FINDINGS: MAMMOGRAPHY: Breast composition: There are scattered areas of fibroglandular density. Mass: None. Architectural distortion: None. Calcifications: No suspicious calcifications. Asymmetric density: Questionable 0.8 cm of focal asymmetry in the right breast at 12 o'clock middle to posterior 3rd, better seen in the CC view with the edge of the parenchymal tissue than the MLO projection. Skin thickening: None. Axillary adenopathy: None. IMPRESSION: Patient will be recalled for right diagnostic mammography with spot compression in CC and MLO and right sonography for further evaluation of questionable right breast asymmetry. ASSESSMENT: BI-RADS Category 0: Incomplete- Need Additional Imaging Evaluation and/or Prior Mammograms for Comparison
== END 2023-04-24 23:59 ==
LOC: RAD 14:14
PROVIDERS: PCP Internal Medicine; Visit Provider Nurse Practitioner Obstetrics & Gynecology
DX: Z12.31 Encounter for screening mammogram for malignant neoplasm of breast (principal)
CPT/HCPCS: 77063; 77067

== ENCOUNTER 2023-05-14 13:02 | Outpatient (CLI) | payer OTHER, SELFPAY ==
--- NOTE | 2023-05-14 13:02 | US_ITS ---
PROCEDURE INFORMATION: Exam: US Right Breast, Complete MG Right Diagnostic Breast Tomosynthesis Exam date and time: 05/14/2023 1:03 PM Age: 63 years old Clinical indication: Patient recalled on the basis of a screening mammogram for further evaluation; Right; asymmetry TECHNIQUE: Imaging protocol: Complete ultrasound of all four quadrants of the right breast and the retroareolar regions, including ultrasound of the axilla when performed. Right Diagnostic tomosynthesis and 2D mammography including computer-aided detection (CAD) when performed. Unilateral or bilateral exam. COMPARISON: 1. MG MM DIG SCREENING MAMM BI W/CAD 04/24/2023 2:07 PM 2. MG MM DIG SCREENING MAMM BI W/CAD 04/18/2022 1:16 PM FINDINGS: MAMMOGRAPHY: Digital diagnostic spot compression views of the right breast and 90 degree lateral view of the right breast demonstrate normal overlapping fibroglandular structures without persistent mass or asymmetry identified. ULTRASOUND: Sonographic images of the right breast including the retroareolar region, all 4 quadrants and the axilla do not demonstrate any solid masses. Incidental 0.4 cm 3 o'clock axis cyst 2 cm from the nipple. No architectural distortion or acoustical shadowing. No skin thickening or axillary adenopathy. IMPRESSION: No mammographic or sonographic evidence of malignancy. Annual bilateral mammographic screening is recommended unless otherwise clinically indicated. ASSESSMENT: BI-RADS Category 2: Benign
== END 2023-05-14 23:59 ==
LOC: RAD 13:02
PROVIDERS: PCP Internal Medicine; Visit Provider Nurse Practitioner Obstetrics & Gynecology
DX: R92.8 Other abnormal and inconclusive findings on diagnostic imaging of breast (principal)
CPT/HCPCS: 76641; 77061; 77065; G0279

== ENCOUNTER 2023-07-16 18:00 | Outpatient (CLI) | payer OTHER, SELFPAY ==
[2023-07-16 18:54] LABS: Basophils # 0.1 K/mm3 (0-0.2); Basophils % 0.7 % (0.1-2.0); Eosinophils # 0.2 K/mm3 (0.0-0.4); Eosinophils % 1.9 % (0.1-12.0); Hematocrit 38.9 % (37.0-47.0); Hemoglobin 12.4 g/dL (12.2-16.2); Lymphocytes # 1.9 K/mm3 (0.7-4.5); Lymphocytes % 24.4 % (10-50); Mean Corpuscular HGB Conc 31.8 g/dL (31.8-35.4); Mean Corpuscular Hemoglobin 30.4 pg (27.0-31.2); Mean Corpuscular Volume 95.6 fl (81-99); Mean Platelet Volume 9.1 fl (7.4-10.4); Monocytes # 0.5 K/mm3 (0.1-1.0); Monocytes % 6.4 % (1.7-9.3); Neutrophils # 5.1 K/mm3 (1.8-7.8); Neutrophils % 66.6 % (37.0-80.0); Platelet Count 381 K/mm3 (142-424); Red Blood Count 4.07 M/mm3 (4.20-5.40); Red Cell Distribution Width 13.9 % (11.5-17.5); White Blood Count 7.7 K/mm3 (4.8-10.8)
[2023-07-16 19:42] LABS: Hemoglobin A1C 5.6 % (4.0-6.0)
[2023-07-16 19:53] LABS: Alanine Aminotransferase 18 U/L (12-78); Albumin Level 3.9 g/dl (3.5-5.0); Albumin/Globulin Ratio 1.4 (1.1-1.8); Alkaline Phosphatase 73 U/L (38-126); Anion Gap 5.7 mEq/L (5-15); Aspartate Amino Transferase 26 U/L (14-36); Bilirubin,Total 0.8 mg/dl (0.2-1.3); Blood Urea Nitrogen 14 mg/dl (7-17); Calcium 9.2 mg/dl (8.4-10.2); Carbon Dioxide 33 mmol/L (22.0-30.0); Chloride 106 mmol/L (98-107); Chol/HDL Ratio 2.8 (1-3.5); Cholesterol 190 mg/dl (140-200); Estimated Glomerular Filt Rate 85 ml/min (>60); GFR (African American) 103 ML/MIN (>60); Globulin 2.8 g/dL (1.3-3.2); Glucose 102 mg/dl (74-100); HDL Cholesterol 69 mg/dl (40-60); Potassium 4.7 mmoL/L (3.5-5.1); Sodium 140 mmol/L (136-145); Total Protein,Serum 6.7 g/dl (6.3-8.2); Triglycerides 68 mg/dl (30-150); VLDL Cholesterol 14 mg/dL (0-40)
[2023-07-16 20:04] LABS: Direct LDL Cholesterol 81.05 mg/dL (100-129)
[2023-07-16 20:12] LABS: 25-OH Vitamin D, Total 34.8 ng/mL (30-100)
[2023-07-16 20:19] LABS: Creatinine,Urine Random 44 mg/dL (Not Estab.)
[2023-07-16 20:24] LABS: Thyroid Stimulating Hormone 2.36 uIU/mL (0.465-4.68)
[2023-07-16 20:25] LABS: Microalbumin < 6.000 mg/L (0-16.7)
[2023-07-16 20:43] LABS: Vitamin B12 289 pg/mL (239-931)
== END 2023-07-16 23:59 | disposition home or self-care (01) ==
LOC: LAB.DROPOF 07-17 08:55
PROVIDERS: PCP Internal Medicine; Visit Provider Internal Medicine
DX: Z00.00 Encounter for general adult medical examination without abnormal findings (principal); E78.2 Mixed hyperlipidemia; I10 Essential (primary) hypertension; I34.0 Nonrheumatic mitral (valve) insufficiency; H90.3 Sensorineural hearing loss, bilateral; M54.12 Radiculopathy, cervical region; Z79.899 Other long term (current) drug therapy
CPT/HCPCS: 80053; 80061; 82043; 82306; 82570; 82607; 83036; 84443; 85025

== ENCOUNTER 2023-08-08 06:10 | Outpatient (CLI) | payer OTHER, SELFPAY ==
--- NOTE | 2023-08-08 | CA_ITS ---
APPROVED REPORT Exam: Exercise Treadmill Technologist: Kanika Millan, Ht: 5 ft 8 in Wt: 175 lbs BSA: 1.93 m2 HR: 73 bpm BP: 154/98 mmHg Rhythm: NSR, rightward axis Medical History Medications: Losartan,,,,, Atorvastatin,,,,, HCTZ,,,,, MeLOXICAM,,,,, Vit D3,,,,, AZelastine,,,,, Xyzal,,,,, Cardiac Risk Factors: HTN, Hyperlipidemia, Smoking Stress Test Details Test: Rodrigue HR Resting HR: 82 bpm Max Heart Rate (APMHR): 159 bpm Max HR Achieved: 238 bpm Target HR (85% APMHR): 135 bpm % of APMHR: 150 Recovery HR: 142 bpm BP Resting BP: 151/90 mmHg Max BP: 218/101 mmHg Recovery BP: 218.0/101.0 mmHg BP response to stress: Abnormal hypertensive response to stress. ECG Resting ECG: NSR, rightward axis Stress EC mm upsloping ST depression Arrhythmia: Occasional PVCs Recovery ECG: Return to baseline within 3 minutes of recovery Recovery Arrhythmia: PVCs Clinical Exercise duration: 06:00 min Highest Stage Achieved: Exercise capacity: 7.0 METs Overall Exercise Capacity for Age: Average Stress ECG Conclusion The patient was able to exercise for a total of 6 minutes, 0 seconds. She achieved a total of 7.0 METS. She has average exercise capacity compared to age and sex matched peers. She has normal HR, but exaggerated hypertensive BP, response to exercise. Ectopy: Occasional PVCs ST changes: [address] depression Conclusion: Average exercise capacity. Hypertensive response to exercise. Equivocal ST changes at peak stress suggestive of possible ischemia. Myoview images reported separately. Test Summary REST . . . . . . . Sitting REST . . . . . . . Sitting REST . . . . . . . Standing REST 04:43 0.0 0.0 82 . 151/ 90 . . Stage 1 01:00 10.0 1.7 140 . . . . Stage 1 02:00 10.0 1.7 122 . . . . Stage 1 03:00 10.0 1.7 131 . 186/ 80 . . Stage 2 01:00 12.0 2.5 123 . . . . Stage 2 02:00 12.0 2.5 132 . . . . Stage 2 03:00 12.0 2.5 158 . . . Stop exercise at 06:00 RECOVERY 01:00 0.0 0.0 140 . . . . RECOVERY 02:00 0.0 0.0 118 . 218/101 . . RECOVERY 03:00 0.0 0.0 100 . 189/ 91 . . RECOVERY 04:00 0.0 0.0 100 . 189/ 91 . . RECOVERY 05:00 0.0 0.0 96 . 177/ 80 . . RECOVERY 06:00 0.0 0.0 97 . 177/ 80 . . RECOVERY 07:00 0.0 0.0 96 . 177/ 80 . . RECOVERY 07:22 0.0 0.0 93 . 161/ 87 . . Electronically signed by : Sabi Kapoor MD 08/09/2023 13:36:44
--- NOTE | 2023-08-08 06:11 | CA_ITS ---
APPROVED REPORT EXAM: Comprehensive 2D, Doppler, and color-flow Echocardiogram Twisting Frame Operator: Sara Vogel CRT Ht: 5 ft 8 in Wt: 175lbs BSA: 1.93 BP: 154/93 mmHg Indications: Abnormal ECG, Murmur, Shortness of Breath, Hyperlipidemia 2D Dimensions LA Volume 39.80 mL LA Volume Index 20.62 mL/m2 (M/F) 16-34 M-Mode Dimensions RVDd 2.71 cm (0.9-2.6) LA Diam 2.99 cm (1.9-4.0) LVDd 4.28 cm (3.5-5.7) LVDs 2.75 cm (3.5-5.7) IVSd 1.32 cm (0.6-1.1) PWd 0.64 cm (0.6-1.1) EF (Teich) 65.60% FS 35.70% EDV (Teich) 82.20 mL TAPSE 2.21 (<1.7) ESV (Teich) 28.30 mL LV Diastology E Decel Time 180 (160-240 msec) E/A Ratio 0.8 MED A' 9.20 cm/s LAT A' 6.00 cm/s Aortic Valve AO Peak GR. 7.30 mmHg Mitral Valve MV E Max Klever. 60.0 (40-130 cm/s) MV A Velocity 76.0 (40-130 cm/s) E/A Ratio 0.78 MV PHT 53.0 ms Pulmonary Valve PV Peak Velocity 105.0 (50-150 cm/s) Tricuspid Valve TR P. Velocity 174.00 cm/s RAP Estimate 10.00 mmHg RVSP 22.00 mmHg Left Ventricle The left ventricle is normal size. The left ventricular systolic function is normal. The left ventricular ejection fraction is within the normal range. There is increased LV wall thickness. There is normal LV segmental wall motion. The left ventricular diastolic function is normal. LVEF is 55%. Right Ventricle The right ventricle is normal size. The right ventricular systolic function is normal. Atria The left atrium size is normal. The right atrium size is normal. There is no Doppler evidence of interatrial shunt. Aortic Valve The aortic valve opens well. There is no aortic valvular stenosis. No aortic regurgitation is present. Mitral Valve The mitral valve is normal in structure. No evidence of mitral valve stenosis. Trace mitral valve regurgitation. Tricuspid Valve The tricuspid valve leaflets are thin and pliable. Trace tricuspid regurgitation. There is insufficient TR jet to estimate RVSP. Pulmonic Valve The pulmonary valve is normal in structure. Trace pulmonic regurgitation. Great Vessels The aortic root is normal in size. The ascending aorta is normal in size. IVC is normal in size and collapses >50% with inspiration. Pericardium There is no pericardial effusion. Other Information Study Quality: Fair Conclusion Normal biventricular systolic function. No significant valvular stenosis or regurgitation. Electronically signed by : Sabi Kapoor MD 08/09/2023 23:32:38
--- NOTE | 2023-08-08 06:13 | NM_ITS ---
APPROVED REPORT Exam: Nuclear Stress Test Indication: HTN, HYPERLIPIDEMIA, TOB USE, FM HX, C.P., SOB Patient Location: Outpatient Stress Tech: Kanika MATHIAS Tech:Nayely Jasmine MADAI RT (R)(N)(M) Ht: 5 ft 7 in Wt: 168 lbs Bra Size: 36B HR: 73 bpm BP: 154/98 mmHg BSA: 1.88 m2 TID: 1.09 BMI: 26.3 History: HTN, HYPERLIPIDEMIA, TOB USE, FM HX, C.P., SOB Procedure: Patient exercised on Rodrigue protocol 6:00 minutes and sec, resting heart rate 73 bpm, resting blood pressure 154/98 mmHg, with exercise maximum heart rate achived was 159 bpm which is 100 % of the maximum predicted heart rate and blood pressure was 218/101 mmHg. Test was stopped due to fatigue. Patient has average exercise capacity, achieved 7.0 METs of workload on treadmill, the blood pressure response to exercise was hypertensive. Cardiac Stress and Resting SPECT Images: Cardiac Stress and Resting SPECT images were obtained using technetium 99m Myoview 30.8 mCi stress and 10.73 mCi at rest. Resting and stress imaging in supine and prone positions demonstrate no evidence of fixed or reversible perfusion defects. Gated imaging demonstrates normal global and regional LV systolic function. LVEF is calculated at 55%. Conclusion: No evidence of fixed or reversible perfusion defects. Gated imaging demonstrates normal global and regional LV systolic function. LVEF is calculated at 55%. Of note, the patient has an exaggerated hypertensive BP response at peak stress. BP control is recommended. Electronically signed by : Sabi Kapoor MD 08/09/2023 13:38:18
[2023-08-08] MEDS: ISOTOPE MYOVIEW (PER STUDY) 1 DOSE IV (09:19)
[2023-08-08] MEDS: SODIUM CHLORIDE 0.9% 10ML SYR (RAD ONLY) 10 ML IV ×2 (09:19)
== END 2023-08-08 23:59 | disposition home or self-care (01) ==
LOC: RAD 06:11
PROVIDERS: PCP Internal Medicine; Visit Provider Physician Assistant
DX: R06.09 Other forms of dyspnea (principal); I34.0 Nonrheumatic mitral (valve) insufficiency; R94.31 Abnormal electrocardiogram [ECG] [EKG]; I07.1 Rheumatic tricuspid insufficiency; I10 Essential (primary) hypertension; E78.2 Mixed hyperlipidemia; Z71.6 Tobacco abuse counseling
CPT/HCPCS: 78452; 93017; 93018; 93306; A9502

== ENCOUNTER 2023-09-24 06:17 | Outpatient (CLI) | payer OTHER, SELFPAY ==
--- NOTE | 2023-09-24 06:20 | CT_ITS ---
FINAL REPORT TECHNIQUE: Axial CT images of the chest were obtained without contrast. Low-dose protocol was utilized. This study was performed with techniques to keep radiation doses as low as reasonably achievable (ALARA). Individualized dose reduction techniques using automated exposure control or adjustment of mA and/or kV according to the patient's size were employed. CLINICAL HISTORY: lung cancer screening..smoker smokes 1/2 pk a day x 45 yrs COMPARISON: 05/16/2018 FINDINGS: CT CHEST WITHOUT, LOW DOSE SCREENING CT Di Vol: 2.90 mGy DLP: 110.20 mGy*cm There is no axillary, mediastinal, or hilar adenopathy. The heart size is normal. There is no pleural or pericardial effusion. The lung windows show a stable 2 mm nodule in the anterior left lower lobe on image 59. There is no new mass or nodule identified. Limited images of the upper abdomen demonstrate no acute finding. IMPRESSION: LR Category 1: 12 month follow-up low-dose chest CT is recommended. Reviewed, Interpreted and Dictated by Sathya Aaron III, MD Transcribed by Yola Vargas Authenticated and [facility]
== END 2023-09-24 23:59 | disposition home or self-care (01) ==
LOC: RAD 06:18
PROVIDERS: PCP Internal Medicine; Visit Provider Internal Medicine
DX: F17.210 Nicotine dependence, cigarettes, uncomplicated (principal)
CPT/HCPCS: 71271

== ENCOUNTER 2023-10-30 14:00 | Outpatient (CLI) | payer OTHER, SELFPAY | END 2023-10-30 23:59 | disposition home or self-care (01) | LOC: LAB.DROPOF 10-31 14:01 | PROVIDERS: PCP Nurse Practitioner Family; Visit Provider Nurse Practitioner Family | DX: N39.0 Urinary tract infection, site not specified (principal) | CPT/HCPCS: 87086; 87088; 87186 ==

== ENCOUNTER 2024-06-04 14:47 | Outpatient (CLI) | payer OTHER, SELFPAY ==
--- NOTE | 2024-06-04 14:50 | MM_ITS ---
PROCEDURE INFORMATION: Exam: MG Bilateral Screening 3D Mammography Exam date and time: 06/04/2024 2:59 PM Age: 64 years old Clinical indication: Screening examination. TECHNIQUE: Imaging protocol: Bilateral Screening tomosynthesis and 2D mammography including computer-aided detection (CAD) when performed. COMPARISON: 1. MG MM DIG MAMM DX UNILAT RT CAD 05/14/2023 1:03 PM 2. MG MM DIG SCREENING MAMM BI W/CAD 04/24/2023 2:07 PM FINDINGS: MAMMOGRAPHY: Breast composition: There are scattered areas of fibroglandular density. Mass: None. Architectural distortion: None. Calcifications: No suspicious calcifications. Asymmetric density: Questionable 0.7 cm ovoid asymmetry in the medial aspect of right breast on the craniocaudal view, approximately 7 cm posterior to the nipple. This is believed to be in the superior aspect the MLO. Skin thickening: None. Axillary adenopathy: None. IMPRESSION: Questionable asymmetry in the medial aspect of the right breast on the craniocaudal view. Patient to be recalled for spot compression views of the right breast in the CC and MLO projections, a full 90 degree lateral view, and right breast ultrasound for further evaluation of this finding. ASSESSMENT: BI-RADS Category 0: Incomplete- Need Additional Imaging Evaluation.
[2024-06-04 16:44] LABS: Basophils # 0.1 K/mm3 (0-0.2); Basophils % 0.7 % (0.1-2.0); Eosinophils # 0.2 K/mm3 (0.0-0.4); Hematocrit 38.2 % (37.0-47.0); Hemoglobin 12.6 g/dL (12.2-16.2); Lymphocytes # 1.9 K/mm3 (0.7-4.5); Lymphocytes % 24.3 % (10-50); Mean Corpuscular Hemoglobin 30.5 pg (27.0-31.2); Mean Corpuscular Volume 92.5 fl (81-99); Mean Platelet Volume 10.4 fl (7.4-10.4); Monocytes # 0.8 K/mm3 (0.1-1.0); Monocytes % 9.8 % (1.7-9.3); Neutrophils # 4.8 K/mm3 (1.8-7.8); Neutrophils % 62.9 % (37.0-80.0); Platelet Count 362 K/mm3 (142-424); Red Blood Count 4.13 M/mm3 (4.20-5.40); Red Cell Distribution Width 13.1 % (11.5-17.5); White Blood Count 7.7 K/mm3 (4.8-10.8)
[2024-06-04 17:12] LABS: Alanine Aminotransferase 34 U/L (12-78); Albumin Level 4.9 g/dl (3.5-5.0); Alkaline Phosphatase 73 U/L (38-126); Anion Gap 12.4 mEq/L (5-15); Aspartate Amino Transferase 33 U/L (14-36); Bilirubin,Total 0.8 mg/dl (0.2-1.3); Blood Urea Nitrogen 16 mg/dl (7-17); Calcium 9.6 mg/dl (8.4-10.2); Carbon Dioxide 32 mmol/L (22.0-30.0); Chloride 98 mmol/L (98-107); Chol/HDL Ratio 2.2 (1-3.5); Cholesterol 173 mg/dl (140-200); Estimated Glomerular Filt Rate 85 ml/min (>60); GFR (African American) 103 ML/MIN (>60); Globulin 2.5 g/dL (1.3-3.2); Glucose 86 mg/dl (74-100); HDL Cholesterol 80 mg/dl (40-60); Potassium 4.4 mmoL/L (3.5-5.1); Sodium 138 mmol/L (136-145); Total Protein,Serum 7.4 g/dl (6.3-8.2); Triglycerides 106 mg/dl (30-150); VLDL Cholesterol 21 mg/dL (0-40)
[2024-06-04 17:24] LABS: Direct LDL Cholesterol 63.78 mg/dL (100-129)
[2024-06-04 17:57] LABS: Hemoglobin A1C 5.3 % (4.0-6.0)
[2024-06-04 19:12] LABS: HIV Combo NEGATIVE (Negative)
[2024-06-04 19:22] LABS: Hepatitis C Ab Qual. W/ RFX NEGATIVE (Negative)
[2024-06-05 11:30] LABS: Creatinine,Urine Random 43 mg/dL (Not Estab.)
[2024-06-05 11:35] LABS: Microalbumin < 6.000 mg/L (0-16.7)
== END 2024-06-04 23:59 | disposition home or self-care (01) ==
LOC: RAD 14:48
PROVIDERS: PCP Internal Medicine; Visit Provider Nurse Practitioner Obstetrics & Gynecology
DX: Z12.31 Encounter for screening mammogram for malignant neoplasm of breast (principal); I10 Essential (primary) hypertension; Z11.4 Encounter for screening for human immunodeficiency virus [HIV]; Z13.220 Encounter for screening for lipoid disorders; Z11.59 Encounter for screening for other viral diseases; Z13.1 Encounter for screening for diabetes mellitus
CPT/HCPCS: 77063; 77067; 80053; 80061; 82043; 82570; 83036; 85025; 86803; 87389

== ENCOUNTER 2024-06-18 13:57 | Outpatient (CLI) | payer OTHER, SELFPAY ==
--- NOTE | 2024-06-18 14:15 | MM_ITS ---
PROCEDURE INFORMATION: Exam: US Right Breast, Complete MG Right Diagnostic Breast Tomosynthesis Exam date and time: 06/18/2024 2:03 PM Age: 64 years old Clinical indication: Recall on the basis of screening mammogram 06/04/2024 for further evaluation of questionable 0.7 cm ovoid asymmetry in the medial aspect of right breast on the craniocaudal view, approximately 7 cm posterior to the nipple. This is believed to be in the superior aspect the MLO. TECHNIQUE: Imaging protocol: Complete ultrasound of all four quadrants of the right breast and the retroareolar regions, including ultrasound of the axilla when performed. Right Diagnostic tomosynthesis and 2D mammography including computer-aided detection (CAD) when performed. Unilateral or bilateral exam. COMPARISON: 1. MG MM DIG SCREENING MAMM BI W/CAD 06/04/2024 2:59 PM 2. MG MM DIG MAMM DX UNILAT RT CAD 05/14/2023 1:03 PM 3. MG MM DIG SCREENING MAMM BI W/CAD 04/24/2023 2:07 PM 4. MG MM DIG SCREENING MAMM BI W/CAD 04/18/2022 1:16 PM FINDINGS: MAMMOGRAPHY: Breast composition: There are scattered areas of fibroglandular density based on the most recent screening mammogram report. Breast mammogram findings: Only 2D spot compression images are submitted, as well as a 2D true lateral ((if additional 3D spot compression images are provided, I am happy to add an addendum). Questioned ovoid asymmetry in the medial right breast is less prominent on spot compression with interspersed fat with no suspicious mass or asymmetry ULTRASOUND: Breast ultrasound findings: Targeted sonography of the medial half of the breast demonstrates a 4 o'clock 1 cm from the nipple an anechoic avascular cyst measuring 0.5 x 0.6 x 0.3 cm which probably correlates to a more anterior mass in the medial breast (which is stable on mammography). not the annotated recalled the finding. No other sonographic masses demonstrated. Sonographically unremarkable axillary lymph node. IMPRESSION: Screening recall questionable ovoid asymmetry in the medial right breast is less prominent on spot compression with no sonographic correlate. Suggest six-month follow-up right diagnostic mammogram unless otherwise clinically indicated. Incidental benign-appearing cyst on sonography probably correlates to the more anterior mammographic mass in the medial breast which is stable mammographically. ASSESSMENT: BI-RADS Category 3: Probably benign.
== END 2024-06-18 23:59 | disposition home or self-care (01) ==
LOC: RAD 13:58
PROVIDERS: PCP Internal Medicine; Visit Provider Nurse Practitioner Obstetrics & Gynecology
DX: R92.8 Other abnormal and inconclusive findings on diagnostic imaging of breast (principal)
CPT/HCPCS: 76641; 77061; 77065; G0279

== ENCOUNTER 2024-12-24 14:48 | Outpatient (CLI) | payer OTHER, SELFPAY ==
--- NOTE | 2024-12-24 15:12 | MM_ITS ---
PROCEDURE INFORMATION: Exam: MG Right Diagnostic Breast Tomosynthesis Exam date and time: 12/24/2024 3:10 PM Age: 64 years old Clinical indication: Follow-up from prior for probably benign right breast asymmetry. TECHNIQUE: Imaging protocol: Right Diagnostic tomosynthesis and 2D mammography including computer-aided detection (CAD) when performed. Unilateral or bilateral exam. COMPARISON: 1. MG MM DIG MAMM DX UNILAT RT CAD 06/18/2024 2:03 PM 2. MG MM DIG SCREENING MAMM BI W/CAD 06/04/2024 2:59 PM FINDINGS: MAMMOGRAPHY: Breast composition: There are scattered areas of fibroglandular density. Breast mammogram findings: Right breast spot compression and 90 degree lateral tomosynthesis views were obtained. Stable roughly 0.8 cm asymmetry medial right breast posterior depth on CC view only again favored to represent overlapping normal fibroglandular tissue. Elsewhere, there are no suspicious masses or calcifications in the partially visualized breast. No abnormal lymph nodes in the partially visualized axilla. IMPRESSION: Right breast asymmetry is unchanged since 06/18/2024 and probably benign. Recommend six-month follow-up bilateral diagnostic mammogram to ensure stability. ASSESSMENT: BI-RADS Category 3: Probably benign.
== END 2024-12-24 23:59 | disposition home or self-care (01) ==
LOC: RAD 14:49
PROVIDERS: PCP Internal Medicine; Visit Provider Nurse Practitioner Obstetrics & Gynecology
DX: N64.89 Other specified disorders of breast (principal); R92.321 Mammographic fibroglandular density, right breast
CPT/HCPCS: 77061; 77065; G0279

== ENCOUNTER 2025-01-23 09:08 | Outpatient (CLI) | payer OTHER, SELFPAY ==
[2025-01-29 14:45] LABS: I006-IgE Cockroach, German <0.10 kU/L (Class 0); T006-IgE Cedar, Mountain <0.10 kU/L (Class 0); T007-IgE Oak, White <0.10 kU/L (Class 0); T008-IgE Elm, American <0.10 kU/L (Class 0); T015-IgE Ash, White <0.10 kU/L (Class 0); T022-IgE Pecan, Hickory <0.10 kU/L (Class 0); W001-IgE Ragweed, Short <0.10 kU/L (Class 0); W011-IgE Thistle, Russian <0.10 kU/L (Class 0); W014-IgE Pigweed, Common <0.10 kU/L (Class 0)
== END 2025-01-23 23:59 | disposition home or self-care (01) ==
LOC: LAB 09:08
PROVIDERS: PCP Internal Medicine; Visit Provider Allergy & Immunology
DX: J30.1 Allergic rhinitis due to pollen (principal); H10.45 Other chronic allergic conjunctivitis; F17.219 Nicotine dependence, cigarettes, with unspecified nicotine-induced disorders
CPT/HCPCS: 36415; 82785; 86003